=== PATIENT | female | born 1995 | race Caucasian/White ===

== ENCOUNTER 2016-12-08 12:10 | Emergency (ER) | payer MEDICAID ==
--- NOTE | ~2016-12-08 | ER ---
PATIENT'S NAME: [facility] AGE: 21 Y [address] ROOM: [place] [address] LOCATION: [facility] ADMIT DATE: 12/08/2016 ER/Outpatient Report DISCHARGE DATE: 12/08/2016 FAMILY PHYSICIAN: Navdeep Torres MD ATTENDING PHYSICIAN: Luis Alfredo Ortega Time of arrival: 12:10. Time seen: 12:28. IDENTIFICATION: A 21-year-old female. CHIEF COMPLAINT: Abdominal pain. HISTORY OF PRESENT ILLNESS: The patient is a 21-year-old female who presents with right upper quadrant abdominal pain since last night. She was evaluated by Navdeep Torres in the clinic and he wanted her to come over for an ultrasound and/or CT scan. She has had no nausea, vomiting, it is a cramping pain. No other problems or concerns. Labs were done in the clinic. ALLERGIES: NO KNOWN DRUG ALLERGIES. MEDICATIONS: No current medications. MEDICAL PROBLEMS: Denies. PRIOR SURGERIES: section x2. REVIEW OF SYSTEMS: Otherwise, negative other than last month, it was her last menstrual period. FAMILY HISTORY: No pertinent family history. SOCIAL HISTORY: The patient lives here in [place]. Tobacco use, denies. Alcohol use, denies. PHYSICAL EXAM: VITAL SIGNS: Weight 89.4 kilos, blood pressure 133/64, pulse 86, respirations [facility] AGE: 21 Y [address] ROOM: [place] [id number] LOCATION: [facility] ADMIT DATE: 12/08/2016 ER/Outpatient Report DISCHARGE DATE: 12/08/2016 FAMILY PHYSICIAN: Navdeep Torres MD ATTENDING PHYSICIAN: Luis Alfredo Ortega 20, temperature 97.3, sats 100% on room air. GENERAL: A 21-year-old female, in no acute distress. HEENT: Head: Normocephalic, atraumatic. Eyes: Pupils equal and reactive to light and accommodation. Extraocular movements intact. Nose: Mucosa pink. No lesions or drainage. Mouth: No lesions. Pharynx benign. NECK: Supple. No lymphadenopathy. LUNGS: Clear to auscultation. HEART: Regular rate and rhythm. ABDOMEN: Soft, nondistended, tender to palpation in epigastric region and tender in the right mid abdomen. No rebound or guarding. SKIN: [place], warm, and dry. No lesions or rashes noted. NEUROLOGIC: Normal. LABORATORY DATA AND X-RAYS: Laboratories were reviewed from the clinic to include hemoglobin 12.8, hematocrit 38.1, platelets 341, white count 14.3 with 76% neutrophils. Sodium 141, potassium 4.3, chloride 110, CO2 of 23, BUN 6, creatinine 0.7, blood sugar 96. Liver enzymes normal. Amylase 55. H. pylori negative. UA here negative. Urine hCG is negative. Ultrasound was obtained which was unremarkable. CT scan with IV but no oral contrast, showed a small left renal cyst and a small amount of pelvic fluid. IMPRESSION: Epigastric pain. PLAN: Prilosec 20 mg daily. Clear liquids as tolerated. Advance diet as tolerated. The patient was given a GI cocktail with some improvement of her pain. Follow up with Dr. Torres next week. Follow up sooner if any problems or concerns. The patient understands and agrees, and all questions have been answered. LUIS ALFREDO ORTEGA MD CAR/modl /[id number] P d: 12/09/16 1319 t: 12/11/16 1424, OUTPATIENT REPORT
[~2016-12-08 12:10] MED LIST: APNO TOP; PERCOCET 5-3251 EACH PO; PRENATAL 1+1)(P1 TAB PO
[2016-12-08 12:40] LABS: BILIRUBIN URINE NEGATIVE (NEGATIVE); BLOOD URINE NEGATIVE /UL (NEGATIVE); COLOR URINE YELLOW (YELLOW); GLUCOSE URINE NEGATIVE (NEGATIVE); KETONE URINE NEGATIVE (NEGATIVE); LEUKOCYTES URINE 25 /UL (NEGATIVE); NITRITE URINE NEGATIVE (NEGATIVE); PROTEIN URINE NEGATIVE (NEGATIVE); TURBIDITY URINE CLEAR (CLEAR); UROBILINOGEN URINE NORMAL (NORMAL)
[2016-12-08 12:46] LABS: AMORPHOUS URINE 1+ (NEGATIVE); BACTERIA URINE NEGATIVE (NEGATIVE); RBC URINE NEGATIVE #/HPF (NEGATIVE); WBC URINE 0-2 #/HPF (NEGATIVE)
== END 2016-12-08 15:33 | disposition disaster alternative care site (69) ==
LOC: GMED 12:10
PROVIDERS: Family Medicine
DX: R10.13 Epigastric pain (principal)
CPT/HCPCS: Q9967